=== PATIENT | female | born 2000 | race Caucasian/White ===

== ENCOUNTER → 2024-09-28 | Outpatient (CLI) | payer BC ==
[2024-09-29 09:37] LABS: Chlamydia Trachomatis Vaginal NOT DETECTED (NOT DETECT); Neisseria Gonorrhoea Vaginal NOT DETECTED (NOT DETECT)
== END ==
LOC: LAB 09:49 → LAB SHORT 09:49
PROVIDERS: Family Medicine
DX: Z30.430 Encounter for insertion of intrauterine contraceptive device (principal)
CPT/HCPCS: 87491; 87591